=== PATIENT | female | born 1975 | race American Indian/Alaskan Native ===

== ENCOUNTER 2020-07-04 08:41 | Day surgery (SDC) | payer OTHER ==
[~2020-07-04 08:41] MED LIST: ESMOLOL 100 MG/10 ML INJ IV ONE; labetaloL 100 MG/20 ML INJ MDV IV ONE
[2020-07-04] MEDS ORDERED: SODIUM CHLORIDE 0.9% 1000 ML 1,000 ML IV SCH (09:15)
--- NOTE | 2020-07-04 09:21 | Anesthesia Day of Surgery ---
Anesthesia Day of Surgery - Day of Surgery Patient Examined: Yes Patient H&P Reviewed: Yes Patient is NPO: Yes
--- NOTE | 2020-07-04 09:21 | Anesthesia Consultation ---
Anesthesia Consult and Med Hx Date of service: 07/04/20 - Airway Anesthetic Teeth Evaluation: Good (some missing teeth) ROM Head & Neck: Adequate Mental/Hyoid Distance: Adequate Mallampati Class: Class II Intubation Access Assessment: Probably Good - Pre-Operative Health Status ASA Pre-Surgery Classification: ASA3 Proposed Anesthetic Plan: MAC - Pulmonary Hx Smoking: Yes (1/2 pack/day x 25 years, quit few weeks ago) - Cardiovascular System Hx Peripheral Vascular Disease: Yes (left lower leg arterial thrombosis) - Other Systems Hx Obesity: Yes (morbid obesity, BMI - 43.4)
[2020-07-04 09:34] LABS: Basophils # (Auto) 0.1 K/mm3 (0.0-0.1); Eosinophils # (Auto) 0.1 K/mm3 (0.0-0.4); Eosinophils % (Auto) 1.2 % (0.0-4.3); Hematocrit 38.5 % (30.3-42.9); Hemoglobin 12.9 gm/dl (10.1-14.3); Lymphocytes # (Auto) 2.8 K/mm3 (1.2-5.4); Lymphocytes % (Auto) 31.5 % (13.4-35.0); Mean Corpuscular HGB Conc 34 % (30-34); Mean Corpuscular Volume 90 fl (79-97); Monocytes # (Auto) 0.5 K/mm3 (0.0-0.8); Monocytes % (Auto) 5.5 % (0.0-7.3); Platelet Count 257 K/mm3 (140-440); Red Blood Count 4.27 M/mm3 (3.65-5.03); Red Cell Distribution Width 14.2 % (13.2-15.2)
[2020-07-04 09:46] LABS: BUN/Creatinine Ratio 14; Blood Urea Nitrogen 11 mg/dL (7-17); Calcium 9.6 mg/dL (8.4-10.2); Hemolysis Index 41
[2020-07-04 10:14] LABS: INR 1.36 (0.87-1.13)
[2020-07-04 10:15] LABS: Partial Thromboplastin Time 33.5 Sec. (24.2-36.6)
[2020-07-04] MEDS ORDERED: LIDOCAINE MPF (2%) 20 MG/1 ML VIAL 5 ML ONE (10:24)
[2020-07-04] MEDS ORDERED: MIDAZOLAM 2 MG/2 ML INJ ONE (10:24)
[2020-07-04] MEDS ORDERED: HYDROmorphone 1 MG/1 ML INJ ONE ×2 (10:24→11:56)
[2020-07-04] MEDS ORDERED: HEPARIN/NS 5000 UNIT/500ML 1,000 ML IR ONE (10:38)
[2020-07-04] MEDS ORDERED: LIDOCAINE (2%) 20 MG/1 ML VIAL 20 ML MDV INFILTRATI ONE (10:39)
[2020-07-04] MEDS ORDERED: WATER FOR INJ Sterile (PF) 10 ML ONE ×2 (11:53→11:58)
[2020-07-04] MEDS ORDERED: ALTEPLASE 2 MG INJ ONE ×2 (11:53→11:58)
[2020-07-04] MEDS: HEPARIN 10,000 UNITS/10 ML VIAL ONE ×2 (12:00→13:00)
[2020-07-04] MEDS ORDERED: KETAMINE/STERILE WATER 50 MG/ML SYRINGE ONE (12:20)
[2020-07-04] MEDS ORDERED: NITROGLYCERIN SYRINGE 6 ML ONE (12:24)
--- NOTE | 2020-07-04 12:26 | Vascular Lab Report ---
Ultrasound guidance right lower extremity INDICATION / CLINICAL INFORMATION: VESSEL ID [email or web address] CARPENTER FOR ARTERIOGRAM. COMPARISON: None available. FINDINGS: Ultrasound guidance of the right lower extremity was provided for the referring physician during the procedure. Signer Name: Kate Kiser MD Signed: 07/04/2020 12:22 PM Workstation Name: [id number]
[2020-07-04] MEDS ORDERED: NITROGLYCERIN 2% OINT 1 GM TP ONE (13:14)
--- NOTE | 2020-07-04 13:38 | Short Stay Summary ---
Short Stay Documentation Date of service: 07/04/20 Narrative H&P: See H&P - History H&P: obtained from office - Allergies and Medications Current Medications: Allergies No Known Allergies Allergy (Verified 07/04/20 09:03) Home Medications Medication Instructions Recorded Confirmed Last Taken Type Percocet 5/325 mg 1 tab PO Q4HRT PRN 07/04/20 07/04/20 07/02/20 History 1 Rivaroxaban [Xarelto] 15 mg PO BID 07/04/20 07/04/20 07/03/20 History 15 mg cilostazoL [Pletal] 100 mg PO BID 07/04/20 07/04/20 07/03/20 History 100 mg Active Medications Clopidogrel Bisulfate (Plavix) 300 mg PO ONCE ONE Stop: 07/04/20 14:01 Sodium Chloride (Nacl 0.9% 1000 Ml) 1,000 mls @ 42 mls/hr IV DIRECT CYN Last Admin: 07/04/20 09:41 Dose: 42 mls/hr Documented by: Oxycodone/Acetaminophen (Percocet 5/325) 2 tab PO Q4H PRN PRN Reason: Pain, Moderate (4-6) Rivaroxaban (Xarelto) 15 mg PO BIDDIAB CYN; Protocol - Brief post op/procedure progress note Date of procedure: 07/04/20 Pre-op diagnosis: PVD With Hypercoagulable State And Left Lower Extremity Ischemia Post-op diagnosis: same Procedure: 1. Ultrasound-Guided Access Left Common Femoral Artery in Antegrade Fashion 2. Diagnostic Left Lower Extremity Angiogram 3. Percutaneous Pharmacomechanical Thrombectomy of Left Anterior Tibial Artery with 10 mg of TPA and Penumbra CAT 6 Aspiration Catheter 4. Percutaneous Pharmacomechanical Thrombectomy of Left Posterior Tibial Artery with 10 mg of TPA and Penumbra CAT 6 Aspiration Catheter 5. Angioplasty of Left Anterior Tibial Artery with Tapered 3.5-4.0 x 220 Nanocross Balloon and 2.5 x 80 Nanocross In the Dorsalis Pedis Artery 6. Angioplasty of Left Posterior Tibial artery with Tapered 3.5-4.0 x 220 Nanocross Balloon and 2.5-3.0 x 220 Nanocross In the Pedal Arch 7. Closure of Left Femoral Arteriotomy with 6 Japanese Angio-Seal 8. Radiologic Supervision with Interpretation Anesthesia: MAC Surgeon: TEZ BECERRA Estimated blood loss: minimal Pathology: none Condition: stable - Disposition Condition at discharge: Good Disposition: DC-01 TO HOME OR SELFCARE Short Stay Discharge Plan Activity: other (No strenuous activity for 24 hours) Wound: remove dressing (24-hour), other (Okay to shower and wash the groin with soap and water but do not soak in water for 2 weeks.) Follow up with: TEZ BECERRA MD [Staff Physician] - 14 Days Prescriptions: Oxycodone HCl/Acetaminophen [Percocet 7.5/325 mg] 1 each PO Q6HR PRN #30 tablet PRN Reason: Pain Clopidogrel [Plavix] 75 mg PO QDAY #90 tablet Pantoprazole [Protonix] 40 mg PO QDAY #90 tablet
--- NOTE | 2020-07-04 13:43 | Operative Report ---
Operative Report Operative Report: Date of Procedure: 07/04/2020 Pre-operative Diagnosis: Complications of Dialysis Access Post-operative Diagnosis: Same Procedure(s): 1. Ultrasound-Guided Access Left Common Femoral Artery in Antegrade Fashion 2. Diagnostic Left Lower Extremity Angiogram 3. Percutaneous Pharmacomechanical Thrombectomy of Left Anterior Tibial Artery with 10 mg of TPA and Penumbra CAT 6 Aspiration Catheter 4. Percutaneous Pharmacomechanical Thrombectomy of Left Posterior Tibial Artery with 10 mg of TPA and Penumbra CAT 6 Aspiration Catheter 5. Angioplasty of Left Anterior Tibial Artery with Tapered 3.5-4.0 x 220 Nanocross Balloon and 2.5 x 80 Nanocross In the Dorsalis Pedis Artery 6. Angioplasty of Left Posterior Tibial artery with Tapered 3.5-4.0 x 220 Nanocross Balloon and 2.5-3.0 x 220 Nanocross In the Pedal Arch 7. Closure of Left Femoral Arteriotomy with 6 Yemeni Angio-Seal 8. Radiologic Supervision with Interpretation Surgeon: Denny Johnson M.D. Clothing Sales Assistant: Odalys Anesthesia: MAC EBL: Minimal Counts: Correct Complications: None Condition: Stable Specimen: None Indication: The patient is a 44-year-old female with a history of peripheral vascular disease and likely hypercoagulable disorder who presented back to an outside surgeon in February with complaints of left leg pain. 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 Approximately 3 weeks ago she presented to the same surgeon with complaints of left foot pain and discoloration and was found to have thrombosis of her tibial vessels. She had an attempt at revascularization however this was unsuccessful so she was sent to id for additional options at revascularization. She was given the risk, benefits, and alternative procedures and consented to the procedure. Angiographic Findings: The diagnostic angiogram revealed that the SFA and popliteal artery were patent without evidence of flow-limiting stenosis. The patient had three-vessel runoff however both the peroneal artery and anterior tibial artery occluded in the upper third of the calf. The posterior tibial artery occluded in the distal third of the calf. There was little to no flow into the foot that was appreciated on the diagnostic angiogram. After intervention the posterior tibial artery was patent with less than 10% residual stenosis, no residual thrombus appreciated, and brisk flow of contrast into the foot and digital vessels. The anterior tibial artery was patent with less than 10% residual stenosis, no significant residual thrombus appreciated, and and fairly brisk flow of contrast into the foot. There was approximately 20 to 30% stenosis in the dorsalis pedis artery that made the flow somewhat more sluggish than the posterior tibial artery however the flow did fill the digital branches. Description of Procedure: The patient was brought to the Hand [facility]in [facility] and laid in supine position. After a timeout was performed her left groin was prepped and draped in normal sterile fashion. Ultrasound was used to identify the left common femoral artery and the overlying skin and soft tissue was anesthetized with lidocaine. An 11 blade was used to make a small stab incision and a curved hemostat was used to bluntly dissect down to the anterior surface of the artery under ultrasound guidance. A 21-gauge needle was used with ultrasound guidance to access the left common femoral artery in antegrade fashion. A 0.018 micropuncture wire was advanced into the artery and after removing the needle a micropuncture sheath was placed by Seldinger technique. The inner cannula and wire were removed and a 0.035 Bentson wire was advanced into the SFA. The micropuncture sheath was then exc hanged for 5 Yemeni sheath by Seldinger technique. A diagnostic angiogram was then performed with the previously described findings. I advanced a 0.018 V18 Wire and Navicross catheter into the anterior tibial artery and was able to easily advance them into the dorsalis pedis artery. I performed a diagnostic angiogram in the foot revealing that the digital vessels were patent. I advanced a Bentson wire into the dorsalis pedis artery and exchanged my 5 Yemeni sheath for a 6 Yemeni 45 cm destination sheath and at this point I systemically heparinized the patient with 5000 as of heparin IV and this was redosed with 1000 units every 45 minutes into the completion of the case. I then advanced the Navicross catheter back into the anterior tibial artery and injected 10 mg of TPA into the anterior tibial artery. I readvanced the V 18 wire into the anterior tibial artery and after allowing the TPA to dwell for approximately 10 minutes I used a Xtreme Power CAT 6 Aspiration Catheter to aspirate thrombus from the mid and distal anterior tibial artery. I advanced a 0.014 Choice PT wire and then performed angioplasty of the anterior tibial artery using a 3.5-4.0 x 220 Nanaocross Balloon with a result of less than 10% residual stenosis however there was sluggish flow and a diagnostic angiogram revealed approximately 90% stenosis in a short segment of the dorsalis pedis artery in the midfoot. I advanced a 2.5 x 80 Nanocross balloon and performed angioplasty of the dorsalis pedis artery with a result of approximately 20% residual stenosis however there was sluggish flow secondary to a large thrombus at the ankle that I was able to retrieve with the CAT 6 device. The follow-up angiogram revealed brisk flow of contrast into the foot and no residual thrombus appreciated. I then advanced the V 18 wire and Navicross catheter through the posterior tibial artery. I injected 10 mg of TPA into the artery and allow this to dwell for approximately 10 minutes. I reinserted a V 18 wire and advanced the Postcard [employer] Tagumbra CAT 6 Aspiration Catheter into the distal posterior tibial artery and was able to aspirate thrombus from the artery. I advanced a Choice PT through the pedal arch and into the anterior tibial artery and I then performed angioplasty of the artery extending from the medial malleolus proximally using a 3.5-4.0 x 220 Nanaocross Balloon. I performed angioplasty of the lateral plantar artery and distal posterior tibial artery using a 3.0 x 220 Nanocross Balloon. This resulted in less than 10% residual stenosis, no residual thrombus appreciated, and brisk flow of contrast into the foot. At this point I removed the balloon and wire and reinserted the [employer] wire. I then used a 6 Yemeni Angio-Seal to close my left femoral arteriotomy. A sterile dressing was then applied to the left femoral entry site and the patient was transported to the recovery area in stable condition.
[2020-07-04] MEDS ORDERED: CLOPIDOGREL 300 MG TAB PO ONE (14:00)
[2020-07-04] MEDS ORDERED: oxyCODONE /ACETAMINOPHEN 5-325MG TAB PO PRN (14:00)
--- NOTE | 2020-07-04 14:06 | Post Anesthesia Evaluation ---
- Post Anesthesia Evaluation Patient Participated: Yes Airway Patent: Yes Stable Respiratory Function: Yes Nausea/Vomiting: No Temp > 96.8F: Yes Pain Manageable: Yes Adequeate Hydration: Yes Anesthesia Complications: No Block Receding Appropriately: Not Applicable Patient on Ventilator: No
[2020-07-04] MEDS ORDERED: RIVAROXABAN 15 MG TAB PO SCH (14:30)
[2020-07-04 15:45] VITALS: BP 162/84
== END 2020-07-04 16:00 | disposition home or self-care (01) ==
LOC: CATHLABREC 08:41
PROVIDERS: ATTEND Surgery Vascular Surgery
DX: I70.213 Atherosclerosis of native arteries of extremities with intermittent claudication, bilateral legs (principal); T82.868A Thrombosis due to vascular prosthetic devices, implants and grafts, initial encounter; G62.9 Polyneuropathy, unspecified; E66.9 Obesity, unspecified; M19.90 Unspecified osteoarthritis, unspecified site; Z86.718 Personal history of other venous thrombosis and embolism; Z79.899 Other long term (current) drug therapy; Z87.891 Personal history of nicotine dependence; Z87.440 Personal history of urinary (tract) infections; Z98.890 Other specified postprocedural states; Z68.41 Body mass index [BMI] 40.0-44.9, adult; Z83.3 Family history of diabetes mellitus; Y84.8 Other medical procedures as the cause of abnormal reaction of the patient, or of later complication, without mention of misadventure at the time of the procedure; Y92.89 Other specified places as the place of occurrence of the external cause
CPT/HCPCS: 36415; 37184; 37185; 37228; 37232; 75710; 76937; 80048; 85025; 85610; 85730; C1725; C1757; C1760; C1769; C1887; J1170; J1644; J2250; J2704; J2997; J3490; J7030; 36002; 76942; Q9967